=== PATIENT | male | born 1980 | race Two or more races ===

== ENCOUNTER 2023-02-25 16:17 | Emergency (ER) | payer MEDICAID, OTHER ==
[~2023-02-25] VITALS: Ht 172.7 cm; Wt 92.7 kg
[2023-02-25] MEDS ORDERED: ACETAMINOPHEN 325 MG TAB PO ONE (16:30)
[2023-02-25 16:35] VITALS: BP 134/91; PULSE 106; RESP 18; O2SAT 97
[2023-02-25] MEDS ORDERED: cefTRIAXone SOD 1,000 MG VL IM ONE (17:15)
[2023-02-25] MEDS ORDERED: AZIT500T66 PO (17:48)
[2023-02-25] MEDS ORDERED: IBUP-1454 PO (17:48)
[2023-02-25 17:54] VITALS: TEMP 99.3
== END 2023-02-25 17:52 | disposition home or self-care (01) ==
LOC: ER 16:17
DX: J03.90 Acute tonsillitis, unspecified (principal); J06.9 Acute upper respiratory infection, unspecified; R07.89 Other chest pain
CPT/HCPCS: 71045; 96372; 99283; J0696